=== PATIENT | male | born 1980 | race Caucasian/White ===

== ENCOUNTER 2017-01-09 15:00 | Observation (INO) ==
[2017-01-09] MEDS ORDERED: SODIUM CHLORIDE 1,000 ML IV STA (15:26)
[2017-01-09 15:37] LABS: BASOPHILS # (AUTO) 0.1 K/uL (0-0.2); BASOPHILS % (AUTO) 0.4 % (0.0-3.0); EOSINOPHILS # (AUTO) 0.2 K/ul (0.0-0.7); EOSINOPHILS % (AUTO) 1.6 % (0.0-7.0); HEMATOCRIT 45.1 % (42.0-52.0); HEMOGLOBIN 16.2 g/dl (14.0-18.0); IMMATURE GRANULOCYTE % (AUTO) 0.3 % (0.0-5.0); LYMPHOCYTES # (AUTO) 2.5 K/uL (0.60-3.4); LYMPHOCYTES % (AUTO) 21.3 (10.0-50.0); MEAN CORPUSCULAR HEMOGLOBIN 33.3 pg (27.0-31.0); MEAN CORPUSCULAR HGB CONC 35.9 (31.8-35.4); MEAN CORPUSCULAR VOLUME 92.6 fl (80.0-94.0); MONOCYTES # (AUTO) 1.2 K/uL (0.4-2.0); MONOCYTES % (AUTO) 10.7 (0-10); NEUTROPHILS # (AUTO) 7.6 K/ul (2.0-6.9); NEUTROPHILS % (AUTO) 65.7; PLATELET COUNT 236 10^3/uL (140-440); RED BLOOD COUNT 4.87 10^6/ul (4.70-6.10); WHITE BLOOD COUNT 11.53 K/ul (4.2-10.2)
[2017-01-09] MEDS ORDERED: ZOFRAN 4 MG/2 ML IVP STA ×2 (15:51→20:48)
[2017-01-09 15:56] LABS: PARTIAL THROMBOPLASTIN TIME 24.4 SEC (23.9-40.0); PROTHROMBIN TIME 9.7 SEC (9.3-11.0)
[2017-01-09 16:03] LABS: ALBUMIN 4.2 g/dL (3.4-5.0); ANION GAP 13.7; BILIRUBIN,TOTAL 0.95 mg/dL (0.00-1.20); CALCIUM 9.6 mg/dL (8.2-10.2); CREATININE 1.09 mg/dL (0.60-1.10); POTASSIUM 3.7 mmol/L (3.5-5.1); TOTAL PROTEIN 8.4 g/dL (6.4-8.2)
[2017-01-09 16:14] LABS: H. PYLORI ANTIBODY POSITIVE (NEGATIVE); H.PYLORI INTERNAL QC INTERNAL QC VALID
--- NOTE | 2017-01-09 16:25 | CT ---
EXAM: CT chest without contrast HISTORY: Cough with vomiting of blood COMPARISON: None TECHNIQUE: Serial axial images of the chest were obtained from the lung apices to the upper abdomen without contrast. These were viewed in multiple planes. FINDINGS: The thyroid is normal. The visualized vessels are unremarkable without aneurysm or steno sis. The heart is normal in size without pericardial effusion. There are no pathologically enlarge d mediastinal or hilar lymph nodes. There are calcified lymph nodes in the mediastinum and right hil um. There is minimal gynecomastia. There is no pneumothorax or pleural effusion. Calcified granulomas are noted adjacent to the fissur e on the right. There is no consolidation, nodule or abnormal ground-glass. The airways are patent . There is no internal debris. The soft tissues in the upper abdomen demonstrate calcified granulomas of the spleen and low attenua tion of the liver. Soft tissues in the abdomen pelvis are otherwise better evaluated by CT abdomen p maribel same day. The osseous structures demonstrate no acute compression fracture. There is degener ative change noted at T11-T12. IMPRESSION: No acute cardiopulmonary process or abnormality to account for symptoms. Sequela of old granulomatous disease.
--- NOTE | 2017-01-09 16:27 | CT ---
EXAM: CT ABDOMEN AND PELVIS HISTORY: Generalized abdominal pain, bloody diarrhea, vomiting. Surgical history includes appendec amador. TECHNIQUE: CT abdomen and pelvis without intravenous contrast. Images were reconstructed using 5 m m section thickness. Reformations were prepared. COMPARISON: None FINDINGS: Diagnostic limitations exist without including contrast enhanced images. Probable mild fatty infilt ration of the liver. No focal hepatic or splenic lesions. Gallbladder, pancreas and adrenal glands are within normal limits. Kidneys and ureters appear normal. Normal abdominal aorta. Stomach unremarkable. No appendix identified consistent with the patient's history. No evidence of bowel obstruction. There is mild fluid distension of portions of the colon without evidence of col onic wall thickening or surrounding pericolic fat stranding. This can be consistent with diarrhea. Small bowel appears grossly normal. No prostate enlargement. Urinary bladder appears normal. No a scites. No abdominal wall hernia. Bones reveal chronic pars interarticularis defects at L5 with no noticeab le spondylolisthesis. Lung bases are free of infiltrate. No pneumoperitoneum. IMPRESSION: 1. No evidence of bowel obstruction. There is mild fluid distension of portions of the colon witho ut evidence of colonic wall thickening or surrounding pericolic fat stranding. This can be consisten t with diarrhea. Consider early colitis. 2. Mild fatty infiltration of the liver. 3. Chronic pars defects L5.
[2017-01-09 16:41] LABS: FLU INTERNAL QC INTERNAL QC VALID; RAPID FLU A NEGATIVE (NEGATIVE); RAPID FLU B NEGATIVE (NEGATIVE)
--- NOTE | 2017-01-09 16:43 | ED.PDOC ---
General ED Provider: Dr. JORDAN COYLE Chief Complaint: Nausea/Vomiting Stated Complaint: N/V/ TARYY STOOLS Time Seen by Physician: 15:00 Mode of Arrival: Walk-In Information Source: Patient Exam Limitations: No limitations Nursing and Triage Documentation Reviewed and Agree: Yes Review of Systems - Review Of Systems Constitutional: Reports: No symptoms Eyes: Reports: No symptoms Ears, Nose, Mouth, Throat: Reports: No symptoms Respiratory: Reports: No symptoms Cardiac: Reports: No symptoms GI: Reports: Abdominal pain, Nausea, Vomiting (TARRY STOOLS) : Reports: No symptoms Musculoskeletal: Reports: No symptoms Skin: Reports: No symptoms Neurological: Reports: No symptoms Endocrine: Reports: No symptoms Hematologic/Lymphatic: Reports: No symptoms All Other Systems: Reviewed and Negative Past Medical History - Past Medical History Previously Healthy: Yes Endocrine: Reports: None Cardiovascular: Reports: None Respiratory: Reports: None Hematological: Reports: None Gastrointestinal: Reports: None Genitourinary: Reports: None Neuro/Psych: Reports: None Musculoskeletal: Reports: None Cancer: Reports: None - Surgical History General Surgical History: Reports: None - Family History Family History: Reports: None - Social History Smoking Status: Former smoker Hx Substance Use: No Alcohol Screening: None - Immunizations Tetanus Shot up to Date: Yes Physical Exam - Physical Exam Appearance: Well-appearing, No pain distress, Well-nourished Eyes: ARSENIO, EOMI, Conjunctiva clear ENT: Ears normal, Nose normal, Oropharynx normal Respiratory: Airway patent, Breath sounds clear, Breath sounds equal, Respirations nonlabored Cardiovascular: RRR, Pulses normal, No rub, No murmur GI/: Soft, Nontender, No masses, Bowel sounds normal, No Organomegaly Musculoskeletal: Normal strength, ROM intact, No edema, No calf tenderness Skin: Warm, Dry, Normal color Neurological: Sensation intact, Motor intact, Reflexes intact, Cranial nerves intact, Alert, Oriented Psychiatric: Affect appropriate, Mood appropriate Interpretation - Radiology Interpretation Radiology Interpretation By: Radiologist Radiology Results: No acute changes Physician Notification - Case Discussed Physician Notified: DIDIER Critical Care Note - Critical Care Note Total Time (mins): 0 Course - Course Hematology/Chemistry: 01/09/17 15:35 01/09/17 15:35 Orders, Labs, Meds: Lab Review 01/09/17 01/09/17 15:35 15:55 WBC 11.53 H RBC 4.87 Hgb 16.2 Hct 45.1 MCV 92.6 MCH 33.3 H MCHC 35.9 H RDW Coeff of Dyllan 12.1 Plt Count 236 Immature Gran % (Auto) 0.3 Neut % (Auto) 65.7 Lymph % (Auto) 21.3 [place] % (Auto) 10.7 H Eos % (Auto) 1.6 Baso % (Auto) 0.4 Immature Gran # (Auto) 0.0 Neut # 7.6 H Lymph # 2.5 [place] # 1.2 Eos # 0.2 Baso # 0.1 PT 9.7 INR 0.94 APTT 24.4 Sodium 142 Potassium 3.7 Chloride 105 Carbon Dioxide 27 Anion Gap 13.7 BUN 12 Creatinine 1.09 Estimated GFR (MDRD) 76.00 BUN/Creatinine Ratio 11.00 Glucose 98 Calcium 9.6 Total Bilirubin 0.95 AST 45 H ALT 80 H Alkaline Phosphatase 88 Total Protein 8.4 H Albumin 4.2 Globulin 4.2 Albumin/Globulin Ratio 1.00 Amylase 75 Lipase 33 H. pylori IgG Antibody Positive Orders Category Date Time Status ED IV/MEDIPORT/POWERPORT .ONCE EMERGENCY 01/09/17 15:22 Active AMYLASE Stat LAB 01/09/17 15:35 Completed CBC W/ AUTO DIFF Stat LAB 01/09/17 15:35 Completed COMPREHENSIVE METABOLIC PANEL Stat LAB 01/09/17 15:35 Completed H. PYLORI SCREEN Stat LAB 01/09/17 15:55 Completed LIPASE Stat LAB 01/09/17 15:35 Completed MOLECULAR GROUP A STREP Stat LAB 01/09/17 16:10 Results PARTIAL THROMBOPLASTIN TIME Stat LAB 01/09/17 15:35 Completed PT WITH INR Stat LAB 01/09/17 15:35 Completed RAPID FLU A/B Stat LAB 01/09/17 16:10 Received STREP SCREEN Stat LAB 01/09/17 16:10 Results URINALYSIS C & S IF INDICATED Stat LAB 01/09/17 16:25 Ordered 0.9 % Sodium Chloride [Saline Flush] MEDS 01/09/17 15:22 Active 1 syr IVF PRN PRN Ondansetron HCl/Pf [Zofran 4 mg/2 ml] MEDS 01/09/17 15:51 Discontinued 4 mg IVP ONCE STA Sodium Chloride 0.9% [Sodium Chloride] 1,000 ml MEDS 01/09/17 15:[address] ABDOMEN/PELVIS WO CONTRAST Stat RADS 01/09/17 15:[address] CHEST W/O CONTRAST Stat RADS 01/09/17 15:23 Completed Medications Generic Name Dose Route Start Last Admin Trade Name Freq PRN Reason Stop Dose Admin Sodium Chloride 1 syr 01/09/17 15:22 01/09/17 16:09 Saline Flush IVF 1 syr PRN PRN Administration To flush IV Discontinued Medications Generic Name Dose Route Start Last Admin Trade Name Freq PRN Reason Stop Dose Admin Sodium Chloride 1,000 mls @ 1,000 mls/hr 01/09/17 15:26 01/09/17 16:00 Sodium Chloride IV 01/09/17 16:25 1,000 mls/hr BOLUS STA Administration Ondansetron HCl 4 mg 01/09/17 15:51 01/09/17 16:08 Zofran 4 Mg/2 Ml IVP 01/09/17 15:52 4 mg ONCE STA Administration Vital Signs: Temp Pulse Resp BP Pulse Ox 01/09/17 15:02 97.8 F 107 H 20 135/88 98 Departure - Departure Time of Disposition: 16:42 Disposition: ADMITTED INPATIENT Discharge Problem: Nausea, Bacterial infection due to Helicobacter pylori Instructions: Abdominal Pain (ED) Condition: Good Pt referred to PMD for follow-up: No Additional Instructions: Please call your Family Physician as soon as possible to schedule a follow-up appointment. Allergies/Adverse Reactions: Allergies No Known Allergies Allergy (Unverified 01/09/17 15:11) Home Medications: Ambulatory Orders Desvenlafaxine Succinate [Pristiq] 01/09/17 Disposition Discussed With: Patient
[2017-01-09] MEDS ORDERED: PROTONIX IV 40 MG in SODIUM CHLORIDE 100 ML IV SCH (17:00)
[2017-01-09] MEDS: SODIUM CHLORIDE 1,000 ML IV SCH (18:02)
[2017-01-09 18:25] VITALS: BMI 35.2
[2017-01-09] MEDS: BIAXIN PO SCH (21:05)
[2017-01-09] MEDS: AMOXIL PO SCH (21:05)
[2017-01-09 22:34] LABS: OCCULT BLOOD INTERNAL QC 1 INTERNAL QC VALID; OCCULT BLOOD SAMPLE 1 NEGATIVE (NEGATIVE)
[2017-01-10 00:16] LABS: OCCULT BLOOD INTERNAL QC 2 INTERNAL QC VALID; OCCULT BLOOD INTERNAL QC 3 INTERNAL QC VALID; OCCULT BLOOD SAMPLE 2 NO SPECIMEN RECEIVED (NEGATIVE); OCCULT BLOOD SAMPLE 3 NO SPECIMEN RECEIVED (NEGATIVE)
[2017-01-10] MEDS: SODIUM CHLORIDE 1,000 ML IV SCH ×2 (05:11→17:41)
[2017-01-10 06:22] LABS: BASOPHILS % (AUTO) 0.2 % (0.0-3.0); EOSINOPHILS # (AUTO) 0.3 K/ul (0.0-0.7); EOSINOPHILS % (AUTO) 3.8 % (0.0-7.0); HEMATOCRIT 37.9 % (42.0-52.0); HEMOGLOBIN 13.8 g/dl (14.0-18.0); IMMATURE GRANULOCYTE % (AUTO) 0.5 % (0.0-5.0); LYMPHOCYTES % (AUTO) 23.6 (10.0-50.0); MEAN CORPUSCULAR HEMOGLOBIN 33.7 pg (27.0-31.0); MEAN CORPUSCULAR HGB CONC 36.4 (31.8-35.4); MEAN CORPUSCULAR VOLUME 92.4 fl (80.0-94.0); MONOCYTES # (AUTO) 0.9 K/uL (0.4-2.0); MONOCYTES % (AUTO) 10.4 (0-10); NEUTROPHILS # (AUTO) 5.2 K/ul (2.0-6.9); NEUTROPHILS % (AUTO) 61.5; PLATELET COUNT 175 10^3/uL (140-440)
[2017-01-10 06:42] LABS: ALBUMIN 3.5 g/dL (3.4-5.0); ALBUMIN/GLOBULIN RATIO 1.13; ANION GAP 10.7; BILIRUBIN,TOTAL 1.34 mg/dL (0.00-1.20); BUN/CREATININE RATIO 12.76; CALCIUM 8.4 mg/dL (8.2-10.2); CREATININE 0.94 mg/dL (0.60-1.10); POTASSIUM 3.7 mmol/L (3.5-5.1); TOTAL PROTEIN 6.6 g/dL (6.4-8.2)
[2017-01-10] MEDS ORDERED: DECADRON 4 MG/ML SDV IM STA (08:12)
[2017-01-10] MEDS: BIAXIN PO SCH ×2 (08:31→21:09)
[2017-01-10] MEDS: AMOXIL PO SCH ×2 (08:31→21:09)
[2017-01-10] MEDS: NYSTOP POWDER TP SCH ×2 (08:32→21:09)
[2017-01-10] MEDS ORDERED: DESVENLAFAXINE SUCCINATE PO SCH (09:00)
[2017-01-10 09:28] LABS: H. PYLORI STOOL ANTIGEN POSITIVE; H.PYLORI STOOL AG INTERNAL QC INTERNAL QC VALID
[2017-01-10] MEDS: PRISTIQ ER PO SCH (10:02)
[2017-01-10] MEDS ORDERED: PROTONIX PO STA (11:28)
[2017-01-10 16:04] LABS: HEMATOCRIT 38.9 % (42.0-52.0); HEMOGLOBIN 14.3 g/dl (14.0-18.0)
[2017-01-11 06:27] LABS: BASOPHILS % (AUTO) 0.1 % (0.0-3.0); HEMATOCRIT 39.4 % (42.0-52.0); HEMOGLOBIN 14.3 g/dl (14.0-18.0); IMMATURE GRANULOCYTE % (AUTO) 0.7 % (0.0-5.0); LYMPHOCYTES # (AUTO) 1.8 K/uL (0.60-3.4); LYMPHOCYTES % (AUTO) 10.9 (10.0-50.0); MEAN CORPUSCULAR HEMOGLOBIN 33.3 pg (27.0-31.0); MEAN CORPUSCULAR HGB CONC 36.3 (31.8-35.4); MEAN CORPUSCULAR VOLUME 91.6 fl (80.0-94.0); MONOCYTES # (AUTO) 1.1 K/uL (0.4-2.0); MONOCYTES % (AUTO) 6.7 (0-10); NEUTROPHILS # (AUTO) 13.2 K/ul (2.0-6.9); NEUTROPHILS % (AUTO) 81.6; PLATELET COUNT 216 10^3/uL (140-440); WHITE BLOOD COUNT 16.17 K/ul (4.2-10.2)
[2017-01-11] MEDS ORDERED: PROTONIX PO SCH (06:30)
[2017-01-11] MEDS: SODIUM CHLORIDE 1,000 ML IV SCH (06:31)
[2017-01-11 07:08] LABS: ALBUMIN 3.8 g/dL (3.4-5.0); ALBUMIN/GLOBULIN RATIO 1.06; ANION GAP 11.1; BILIRUBIN,TOTAL 0.77 mg/dL (0.00-1.20); BUN/CREATININE RATIO 11.9; CALCIUM 9.3 mg/dL (8.2-10.2); CREATININE 0.84 mg/dL (0.60-1.10); POTASSIUM 4.1 mmol/L (3.5-5.1); TOTAL PROTEIN 7.4 g/dL (6.4-8.2)
[2017-01-11] MEDS: AMOXIL PO SCH (08:41)
[2017-01-11] MEDS: NYSTOP POWDER TP SCH (08:41)
[2017-01-11] MEDS: PRISTIQ ER PO SCH (08:41)
[2017-01-11] MEDS: BIAXIN PO SCH (08:41)
[2017-01-11 10:17] VITALS: BP 138/82; TEMP 97.6
--- NOTE | 2017-01-11 14:52 | PN ---
DATE OF SERVICE: 01/10/17 SUBJECTIVE: The patient was admitted with lower GI bleed. The patient's initial hemoglobin was 16.2 then went to 16.0 and this morning is 13.8. Stool for occult blood test was done one time and was negative. Liver enzymes were better. The patient still having diarrhea, had it two times, had some belly cramps otherwise no nausea, vomiting or diarrhea. No history of alcohol use, REVIEW OF SYSTEMS: CONSTITUTIONAL: No fever, no chills. HEENT: Normal. ENDOCRINE: No weight gain, no weight loss. CVS: No angina symptoms. No CHF symptoms. No palpitations. No atypical chest pain for CAD. No shortness of breath. No PND, no orthopnea. RESPIRATORY: No cough, no hemoptysis. GI: Diarrhea. Abdominal cramping. No nausea, no vomiting. : No hematuria. No polyuria. MUSCULOSKELETAL:. No joint swelling. PSYCHIATRIC: Not anxious. No depression. No suicidal thoughts. No homicidal thoughts. SKIN: Intact. No rash. PHYSICAL EXAMINATION: V/S: BP 105/68, respiratory rate 18, heart rate 70, temperature 98.0. HEENT: Normocephalic, atraumatic. Mucosa dry. Pallor positive. No icterus. NECK: Supple. No JVD, no carotid bruit. No lymphadenopathy. LUNGS: Clear to auscultation. No rales or rhonchi. HEART: S1, S2 normal. No S3. No murmur, gallop or regurgitation. ABDOMEN: Discomfort all over. Bowel sounds active. No rigidity. No rebound or guarding. No CVA tenderness. EXTREMITIES: No clubbing, cyanosis or pedal edema. MUSCULOSKELETAL: No joint swelling. NEUROLOGIC: Awake, alert, oriented times three. No focal deficit. LYMPHATIC: No lymph nodes palpable. SKIN: Intact. LABS: Sodium 140, potassium 3.7, chloride 107, bicarb 26, BUN 12, creatinine 0.94. White count 8.50, hemoglobin 13.8, hematocrit 37.8, platelet count 175. ASSESSMENT: 1. COLITIS 2. GASTROENTERITIS 3. DEHYDRATION 4. QUESTIONABLE GI BLEED 5. DEHYDRATION VERSUS DROP IN HEMOGLOBIN 6. H. PYLORI POSITIVE PLAN: 1. Protonix 40 mg daily 2. Continue home medication 3. Out of bed to chair 4. Continue Amoxicillin and Biaxin 5. Will follow the patient in daily rounds TIME SPENT: More than 30 minutes RM
--- NOTE | 2017-01-11 15:24 | HP ---
DATE OF SERVICE: 01/09/17 REASON FOR HOSPITALIZATION: Abdominal pain, diarrhea and the blood in the stool. 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 Vomit was food material, non-bloody and non-bilious. Diarrhea initially was stools then he had a black diarrhea and abdominal cramps and hurting in the epigastric area. He was seen by Dr. Spivey in the emergency room. CT of the abdomen done which was consistent the the colitis and the diarrhea. Labs were done which showed the WBC elevated 11.53, hgb 16.2, plt count is normal, monocytes are elevated. INR was 0.94 and elevated liver enzymes 45 and 80. Initial stool for occult blood test was negative. Serology was done in the emergency room for the H-pylori which came positive. At that time the patient was admitted to the hospital for IV hydration and the lower GI bleed and acute colitis with elevated liver enzymes. REVIEW OF SYSTEMS: CONSTITUTIONAL: No night sweats. Weakness and tiredness. No fever or chills. HEENT: Eyes: No visual changes. No eye pain. No eye discharge. ENT: No runny nose. No epistaxis. No sinus pain. No sore throat. No odynophagia. No ear pain. No congestion. RESPIRATORY: No cough, no congestion. No hemoptysis. CARDIOVASCULAR: No angina symptoms. No CHF symptoms. No atypical chest pain for CAD. No palpitations. No shortness of breath. GASTROINTESTINAL: Abdominal cramps. Nausea and vomiting. Diarrhea. No hematemesis. No hematochezia. GENITOURINARY: No urgency. No frequency. No dysuria. No hematuria. No obstructive symptoms. No discharge. No pain. No significant abnormal bleeding. MUSCULOSKELETAL: No musculoskeletal pain. No joint swelling. No arthritis. NEUROLOGICAL: No headache. No neck pain. No syncope. No seizures. No dizziness. PSYCHIATRIC: Not anxious. No depression. No suicidal thoughts. No homicidal thoughts. SKIN: No rash. No lesions. No wounds. ENDOCRINE: No unexplained weight loss. No weight gain. HEMATOLOGIC/LYMPHATIC: No anemia. No purpura. No petechiae. No prolonged or excessive bleeding. No palpable lymph nodes. PERSONAL/FAMILY/SOCIAL HISTORY: The patient does not smoke or drink alcohol, chew tobacco. Family history is not significant. 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 GENERAL: The patient is an obese man, lying in the bed and not in any distress. HEENT: Head normocephalic, atraumatic. Eyes: Extraocular muscles are intact. Pupils are equal, round and reactive to light and accommodation. Ears: No lesions. Nose appeared normal. Throat: No exudate or erythema. NECK: Supple. No JVD, no carotid bruit. No lymphadenopathy or thyromegaly. LUNGS: Clear to auscultation. Percussion note normal. Chest symmetrical. HEART: S1, S2, no S3. No murmurs. No cyanosis or clubbing. No ascites. Pulses: Dorsalis pedis and posterior tibial pulses +1 to +2 both sides. ABDOMEN: Soft. Nontender. Discomfort all over. Bowel sounds hyperactive. No CVA tenderness. No mass felt. Epigastric discomfort present. No rigidity. No guarding. EXTREMITIES: No edema. Full range of motion of all extremities, equal. NEUROLOGIC: No focal deficit. Cranial nerves II through XII are grossly intact. No headache, no double vision or headache. SKIN: Not dry. Intact. Turgor - normal. LYMPHATIC: No palpable lymph nodes/no lymphedema. MUSCULOSKELETAL: Normal joints with no swelling. Muscle tone is normal. ASSESSMENT: 1. Acute colitis 2. Questionable GI bleed, black tarry stools 3. Elevated liver enzymes 4. H-pylori positive PLAN: 1. Admit patient to the regular floor 2. CBC and CMP today and daily 3. IV fluids 4. Amoxicillin and Biaxin for H-Pylori 5. Zofran PRN 6. Protonix PO daily Will follow the patient in daily rounds. TIME SPENT: More than 55 minutes. MTDD
--- NOTE | 2017-02-14 12:47 | DS ---
DATE OF SERVICE: 01/11/17 FINAL DIAGNOSIS: 1. Colitis 2. Gastroenteritis 3. Dehydration 4. Decrease in hgb mostly from the rehydration 5. H.Pylori positive DISCHARGE INSTRUCTIONS: Discharge the patient home. Followup in the [facility] for the GI evaluation. MEDICATIONS AT DISCHARGE: Pristiq NEW PRESCRIPTIONS: Protonix 40mg PO daily Amoxil 500mg one twice daily for 12 days. Biaxin Diflucan 150mg PO daily for seven days for skin antifungal treatment DIET INSTRUCTIONS: Regular as tolerated ACTIVITY: Resume as tolerated SMOKING: N/A DISEASE SPECIFIC EDUCATION: Peptic ulcer disease Medication side effects Probiotics Diet, no spicy food, no fried food. HOSPITAL COURSE: Cleve Dolan who came to the emergency room with epigastric pain, burning, pain with nausea, vomiting and tarry stools. The patient was seen was Dr. Spivey in the emergency room. WBC was 11.53 and the rest of the labs were negative. H.Pylori antigen was positive. Dr. Spivey did the CT of abdomen and pelvis which showed no evidence of the bowel obstruction, there is a mild fluid retention of portions of the colon without evidence of colonic wall thickening surrounding consistent with the diarrhea. Considered early colitis. CT of the chest done; no acute pulmonary processes. Sequela of old granulomatous disease. At that time he was admitted as patient was having intractable pain, not able to keep anything. He was admitted with the IV fluids and Zofran was given and Protonix IV was given which did help patient to calm his stomach down. Next day we did get the stool for her H.Pylori which was positive so was started on the Amoxil and Biaxin treatment. The patient did have a mildly elevated liver enzymes on admission but they got better. D-dimer was negative. Stool for occult blood test was negative. Influenza was negative. Gradually the patient tolerated the food and did not have any diarrheas anymore. The patient did have a diarrhea initially which got resolved and was able to keep the food down. Soft diet and then advanced the diet as tolerated and did not have any problems. The patient was up and about walking. As the patient was doing fine and did not have any complications the patient was planning to be discharged. The patient did have some skin areas on the back which were shiny area with the flickering of the skin. Mostly consistent with the dermatomycosis. Diflucan was given to the patient. Explained that the liver enzymes should be rechecked with in one week. Lifestyle modification weight loss been discussed. GI consultation and outpatient endoscopy been discussed and verbalized understanding. As patient's symptoms are improved that patient was discharged home and will be followed in the [facility] within week to ten days. ULISESD
== END 2017-01-11 12:40 | disposition home or self-care (01) ==
LOC: ED 15:00 → MEDSURG A 16:46 → INTOOBSV 16:46
PROVIDERS: ADMIT Emergency Medicine; ATTEND Emergency Medicine
DX: K52.9 Noninfective gastroenteritis and colitis, unspecified (principal); B96.81 Helicobacter pylori [H. pylori] as the cause of diseases classified elsewhere; R74.8 Abnormal levels of other serum enzymes; E86.0 Dehydration; R71.0 Precipitous drop in hematocrit; B36.9 Superficial mycosis, unspecified
CPT/HCPCS: 36415; 80053; 82150; 82272; 83690; 85014; 85018; 85025; 85610; 85730; 86677; 87338; 87651; 87804; 87880; 96361; 96372; 96374; 96376; 97802; 99223; 99233; 99239; 99284